=== PATIENT | female | born 1935 | race Caucasian/White ===

== ENCOUNTER 2020-08-06 07:39 | Emergency (ER) | payer MEDICARE, BC ==
[2020-08-06 12:48] LABS: HEMOGLOBIN 13.2 gm/dl (12.3-15.3); RED BLOOD COUNT 4.47 M/UL (4.00-5.10); WHITE BLOOD COUNT 9.6 K/UL (4.5-11.0)
[2020-08-06 13:17] LABS: BUN/CREATININE RATIO 26 (0-10)
[2020-08-06] MEDS ORDERED: ANTIVERT 12.512.5 MG PO (16:23)
== END 2020-08-06 16:56 | disposition home or self-care (01) ==
LOC: ER1 07:39
PROVIDERS: Emergency Medicine
DX: R42 Dizziness and giddiness (principal); R06.02 Shortness of breath; J81.1 Chronic pulmonary edema; I10 Essential (primary) hypertension; E11.9 Type 2 diabetes mellitus without complications; Z20.822 Contact with and (suspected) exposure to COVID-19
CPT/HCPCS: 70450; 71045; 80053; 82009; 82550; 82553; 83690; 83735; 83874; 83880; 84439; 84443; 84484; 85025; 93005; 96374; 99285; J2405; J7030; U0002